=== PATIENT | female | born 2000 | race Caucasian/White ===

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

== ENCOUNTER → 2022-03-29 10:31 | Outpatient (CLI) | payer BC, SELFPAY ==
--- NOTE | 2022-03-29 10:35 | DI.US.S_ITS ---
PROCEDURE: US PELVIC COMPLETE INDICATIONS: PCOS/ovarian cyst TECHNIQUE: Real-time scanning was performed of the pelvic organs, with image documentation. Additional endovaginal scanning was necessary due to incomplete visualization of the adnexal and endometrial structures by transabdominal scanning. COMPARISON: [facility], US, US PELVIC COMPLETE WITH TRANSVAGINAL, 05/29/2019, 8:17. [facility], US, US PELVIC COMPLETE WITH TRANSVAGINAL, 10/09/2019, 9:31. [facility], US, US PELVIC COMPLETE WITH TRANSVAGINAL, 02/21/2020, 0:02. FINDINGS: Uterus: Uterus is anteverted and normal in size at 7.2 x 2.8 x 4.3 cm. The myometrium is homogeneous. The endometrium measures 3 mm combined thickness. Ovaries: The right ovary measures 3.6 x 2.6 x 2.3 cm. The left ovary measures 4.9 x 5 x 5 cm and demonstrates a complex cyst that measures 4.7 x 4.2 x 4.4 cm. More than 12 follicles can be seen involving the right ovary. No adnexal masses are seen. Other: A mild amount of free pelvic fluid is seen, which is considered to be within physiologic limits. IMPRESSION: Complex cyst seen of the left ovary measuring up to 4.7 cm. If it would be clinically appropriate, a followup pelvic ultrasound could be considered in 6 weeks to assure resolution/ improvement. More than 12 follicles can be seen involving the right ovary, which is consistent with the given clinical history of polycystic ovarian syndrome. We strive to produce accurate, complete, and clear reports of imaging services. To assist us in improving patient care, this report was composed using standard report templates and voice recognition software. Therefore, it may contain abnormal punctuation, insertions and/or omissions. Occasional wrong-word or sound-alike substitutions may occur. Though we review the report and make efforts to correct it, we do recommend that the report be read carefully in proper context to recognize any text inaccuracies. Dictated by: Alex Davis M.D. on 03/29/2022 at 11:29 Approved by: Alex Davis M.D. on 03/29/2022 at 11:33
== END ==
PROVIDERS: Referring Provider Obstetrics & Gynecology; Visit Provider Obstetrics & Gynecology
DX: E28.2 Polycystic ovarian syndrome (principal); N83.292 Other ovarian cyst, left side
CPT/HCPCS: 76830; 76856

== ENCOUNTER → 2022-05-10 08:34 | Outpatient (CLI) | payer BC, SELFPAY ==
[2022-05-10 10:01] LABS: Glucose 92 mg/dL (70-100)
== END ==
PROVIDERS: Referring Provider Obstetrics & Gynecology; Visit Provider Obstetrics & Gynecology
DX: E28.2 Polycystic ovarian syndrome (principal)
CPT/HCPCS: 36415; 82947; 83525

== ENCOUNTER → 2022-05-27 07:55 | Outpatient (CLI) | payer BC, SELFPAY ==
[2022-05-27 08:44] LABS: COVID19 -Nasal RAPID Negative (Negative)
== END ==
PROVIDERS: Visit Provider Obstetrics & Gynecology
DX: Z01.812 Encounter for preprocedural laboratory examination (principal); Z20.822 Contact with and (suspected) exposure to COVID-19
CPT/HCPCS: 87635

== ENCOUNTER 2022-05-30 09:34 | Day surgery (SDC) | payer BC, SELFPAY ==
[2022-05-25 14:29] VITALS: BMI 29.5
[2022-05-30] VITALS (10 sets, daily range): BP systolic 99–142; BP diastolic 64–100; PULSE 85–120; RESP 12–25; TEMP 36.1–37.1; O2SAT 10–100; BMI 29.5
[2022-05-30] MEDS: LACTATED RINGERS 1,000 ML 100 ML IV (10:16)
--- NOTE | 2022-05-30 10:22 | PM.HP.1 ---
History of Present Illness History of Present Illness Date Patient Seen: 05/30/22 Time Patient Seen: 10:22 Chief complaint: SDC Narrative: Patient is a 21-year-old 0 who presents for a laparoscopic removal of a complex left ovarian cyst. Patient History Medical History (Updated 05/30/22 @ 09:53 by Indy Stuart RN) Anxiety and depression GI bleeding Headache History of panic attacks Kidney stone Ovarian cyst Syncope and collapse Surgical History (Updated 12/06/18 @ 20:37 by Krista Hardin PA-C) No pertinent past surgical history Family & Social History Social History: household members significant other Tobacco & Substance use: Smoking Status Never smoker alcohol intake current alcohol intake frequency holiday/special occasion Substance Use Type marijuana Meds Home Medications and Allergies Home Medications Medication Instructions Recorded Confirmed Type oxycodone 5 mg tablet 5 mg PO Q6H PRN pain #10 tabs 05/18/22 05/30/22 Rx Allergies Allergy/AdvReac Type Severity Reaction Status Date / Time No Known Drug Allergies Allergy Verified 05/30/22 09:52 Exam Vital Signs (past 8 hours): - 05/30/22 10:02 Temperature 98.8 F Pulse Rate 96 H Respiratory Rate 16 Blood Pressure 139/100 H Pulse Oximetry 98 Oxygen Delivery Method Room Air Oxygen Delivery Method Room Air Narrative Exam Narrative: HEENT: No thyromegaly, no anterior cervical or supraclavicular lymphadenopathy. Lungs:Clear to auscultation bilaterally, no wheezes. Cardiovascular: Regular rate and rhythm, no murmurs, rubs, or gallops. Abdomen: No scars. No hepatosplenomegaly. No masses palpable. External genitalia: Normal Vagina: Normal Cervix: Normal Bimanual exam: 6 Week size anteverted uterus. Mobile. Left adnexal tenderness and fullness Extremities: No edema Assessment & Plan Assessment & Plan narrative: Assessment: 21-year-old 0 with a complex left ovarian cyst Plan: Laparoscopic removal of the left ovarian cyst The risks, benefits, and alternatives to the procedure were explained to the patient. The risks including bleeding, infection, injury to the bowel, bladder, or ureters. She understands these risks and agrees to proceed. A full par Q was held and consent form was signed. COVID-19 COVID-19 status: Negative Time Spent With Patient Time with patient: less than 30 minutes Critical Care time: I spent a total of [] minutes of critical care time on this patient's care today; this time is exclusive of procedural time.
--- NOTE | 2022-05-30 10:24 | PM.PREOP ---
Pre-operative Note COVID-19 COVID-19 status: Negative Result date/Date tested (Pos, Neg/Pending): 05/27/22 Criteria for continued procedure: Non-surgical alternatives not available or appropriate per current SOC Interval Note History & Physical reviewed/Exam performed by Physician: Yes Changes to H&P: No H&P completed within 30 days and has changed as indicated here:: 05/30/22
--- NOTE | 2022-05-30 11:00 | SUR.OPER ---
Lithotomy on padded OR bed, head on pillow, arms tucked bilaterally with toboggans and gel pads. Legs secured in padded yellow fins stirrups.
[2022-05-30] MEDS: BUPIVACAINE 0.5% W/ EPI (PF) 30 ML VIAL INJ (11:06)
[2022-05-30] MEDS: fentaNYL 100 MCG/2 ML INJ IV (11:46)
--- NOTE | 2022-05-30 11:57 | PM.GYNOP.1 ---
Operative Date/Time/Diagnoses Date of procedure: 05/30/22 Time of procedure: 11:57 Pre-op diagnosis: Complex left ovarian cyst Post-op diagnosis: same Procedure & Clinicians Procedure: Procedures Operation Date: 05/30/22 11:45 Actual Procedure Side Surgeon p Diagnostic laparoscopy, bilateral ovarian patricia holes Left Tamela Grover MD Indications: Polycystic ovaries Complex left ovarian cyst Surgeon: Tamela Grover Anesthesia Type: General and Local Operative Notes Findings: 6 wks size anteverted uterus Normal tubes bilaterally Normal liver and gallbladder Normal appendix Enlarged Polycystic ovaries bilaterally Moderate amount of blood in the pelvis 1 cm paratubal cyst on the right tube Closure Type: primary Specimen(s): none Estimated blood loss (mL): 5 Blood products transfused: none Procedure in detail: After informed consent was obtained, the patient was taken to the operating room where she was placed in the dorsal supine position. After adequate general endotracheal anesthesia was achieved, she was placed in the dorsal lithotomy position, and prepped and draped in the usual sterile fashion. A time-out was performed. A bivalve speculum was placed into the vagina and the anterior lip of the cervix was grasped with a single-tooth tenaculum. The cervical os was sequentially dilated until the Zumi uterine manipulator could pass easily into the endometrial cavity. Single-tooth tenaculum was removed from the anterior lip of the cervix. The bivalve speculum was removed from the vagina. Attention was then turned to the abdomen where 6 cc of 0.5% Marcaine with epinephrine were injected in the umbilical fold. A 5 mm incision was made. The Veress needle was placed into the peritoneal cavity, and its placement confirmed by aspiration and drop test. The abdominal cavity was insufflated with 3.8 L of CO2. The Veress needle was removed, and a 5 mm trocar was placed without difficulty. A second incision was made 4 cm to the left of midline at the level of the umbilicus after 6 cc of 0.5% Marcaine with epinephrine were injected. A second 5 mm incision was made. A second 5 mm trocars placed without difficulty under direct visualization. Probe was used to identify both ovaries. In the posterior cul-de-sac there was a moderate amount of blood that was coming from the left ovary. The left ovarian cyst had ruptured. There were polycystic ovaries bilaterally. Normal appendix. Normal liver and gallbladder. A third incision was made to the right of midline at the level of the umbilicus after 6 cc of 0.5% Marcaine with epinephrine were injected. A 5 mm incision was made. A third 5 mm trocar was placed under direct visualization. The probe was used to elevate the uterus out of the pelvis. The anterior posterior cul-de-sacs were inspected. They were normal. Using the J-hook cautery, the paratubal cyst on the right was cauterized and collapsed. Using the J-hook multiple peripheral follicles on both ovaries were cauterized using patricia holes. Hemostasis was achieved. The instruments were removed from the abdomen. The CO2 was allowed to escape. All of the incisions were closed with 4-0 Monocryl in a subcuticular fashion. Steri-Strips and Allevyn dressings were placed. The Zumi uterine manipulator was removed from the uterus. Sponge, lap, and instrument counts were correct x2. The patient tolerated the procedure well, and was taken to PACU in stable condition. Complications: none Post-operative Condition: stable Disposition: PACU Plan for aftercare: Home after recovery
[2022-05-30] MEDS: OXYCODONE IR 5 MG TABLET PO ×2 (12:00→12:42)
[2022-05-30] MEDS: ACETAMINOPHEN 325 MG TABLET PO ×2 (12:22→12:43)
== END 2022-05-30 13:15 | disposition home or self-care (01) ==
PROVIDERS: Referring Provider Obstetrics & Gynecology; Visit Provider Obstetrics & Gynecology
PROC: (CPT 58661; principal; 2022-05-30 11:45)
DX: E28.2 Polycystic ovarian syndrome (principal); K66.1 Hemoperitoneum; N83.8 Other noninflammatory disorders of ovary, fallopian tube and broad ligament
CPT/HCPCS: 58662; 81025; J1100; J1885; J2250; J2405; J2704; J3010

== ENCOUNTER 2022-06-13 23:47 | Emergency (ER) | payer BC, SELFPAY ==
[2022-06-14 00:37] VITALS: BP 138/81; PULSE 93; RESP 14; TEMP 36.7; O2SAT 100; BMI 27.4
--- NOTE | 2022-06-14 03:00 | PC.NURSE ---
Ambulatory to bathroom with steady gait
--- NOTE | 2022-06-14 03:30 | PC.NURSE ---
Awaiting MD evaluation - no needs voiced at this time - NAD
--- NOTE | 2022-06-14 03:31 | ED.SKABFB ---
HPI - Skin/Abscess/Foreign Bdy General Chief complaint: Skin/Abscess/Foreign Body Stated complaint: GET INCISION CHECKED OUT POSSIBLE INFECTION Time Seen by Provider: 06/14/22 03:02 Source: patient Mode of arrival: Ambulatory Limitations: no limitations History of Present Illness HPI narrative: Patient is a 21-year-old female status post laparoscopic left ovarian cyst removal from 05/30/2022 presenting today with incisional site pain. She states that she took 2 weeks off before she went back to work. 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 She says she pushes 100 lb carts around his. [place] was her 1st night back she has only been at work for a few hours when she started having worsening pain. She actually says that her incisional site pain started about 3 days ago. She says that she was doing well however this skin is over her incisions started hurting. She has not had any fever chills there is no nausea or vomiting. Normal bowel movements. The skin is very sensitive overall 3 incisional sites. Today she went back to work and the pain got worse. She has been taking Tylenol ibuprofen. It has been helping. Related Data Previous Rx's Medication Instructions Recorded oxycodone 5 mg tablet 5 mg PO Q4H PRN pain #14 tabs 05/30/22 Allergies Allergy/AdvReac Type Severity Reaction Status Date / Time No Known Drug Allergies Allergy Verified 05/30/22 09:52 Review of Systems Review of Systems Narrative: GENERAL: Denies chills,fever HEENT: Denies throat pain RESPIRATORY: Denies dyspnea, cough, wheezing CARDIOVASCULAR: Denies chest pain, palpitations GASTROINTESTINAL: Denies nausea, vomiting MUSCULOSKELETAL: Denies extremity pain, injury SKIN: See HPI NEUROLOGIC: Denies weakness, dizziness, headache, numbness 8 point review of systems is negative except for those stated above and HPI Patient History Medical History (Updated 06/14/22 @ 03:53 by Shannon Teague DO) Anxiety and depression GI bleeding Headache History of panic attacks Kidney stone Ovarian cyst Syncope and collapse Surgical History (Updated 12/06/18 @ 20:37 by Krista Hardin PA-C) No pertinent past surgical history Social History household members: significant other Smoking Status: Never smoker alcohol intake: current Smoking Status: Never smoker tobacco type: vaping alcohol intake frequency: holidays/special occasions only Substance Use Type: marijuana Exam Initial Vital Signs Initial Vital Signs: Vital Signs Temperature 98.0 F 06/14/22 00:37 Pulse Rate 93 H 06/14/22 00:37 Respiratory Rate 14 06/14/22 00:37 Blood Pressure 138/81 06/14/22 00:37 Pulse Oximetry 100 06/14/22 00:37 Oxygen Delivery Method 06/14/22 00:37 GENERAL: Alert well-appearing 21-year-old female HEENT: Head atraumatic,EOMI, pupils reactive, face symmetric, moist mucous membranes CARDIOVASCULAR: Regular rate and rhythm without murmurs, rubs or gallops. RESPIRATORY: Breath sounds equal bilaterally, no wheezes rales or rhonchi. ABDOMEN: Soft, mildly tender more tender over the incisional sites hernias are present no seroma was skin has healed. More tender on left than right EXTREMITIES: Normal range of motion, no clubbing or edema. Neurovascularly intact NEUROLOGICAL: Alert and oriented x4. SKIN: Incisional sites are clean dry healed no erythema is no drainage no sign of infection Course Vital Signs Vital signs: Vital Signs - 8 hr 06/14/22 00:37 Temperature 98.0 F Pulse Rate 93 H Respiratory Rate 14 Blood Pressure 138/81 Pulse Oximetry 100 Oxygen Delivery Method Room Air MDM - Skin/Abscess/Foreign Bdy MDM Narrative Medical decision making narrative: The patient overall appears well. She has pain on the skin at her incision sites on all 3. It is more on the left than the others but present everywhere. His she started going back to work which is quite a lot of manual labor and heavy lifting. I think she has overdone it causing worsening pain. At this time no concerning signs or symptoms no need for further workup. There is certainly no sign of infection. Unlikely to be hernia abscess or other. She does need work note for any further time Discharge Plan Departure Patient Disposition: Home Clinical Impression: Post-operative pain Instructions: DI for Postoperative Pain Activity Restrictions/Additional Instructions: *You have been diagnosed with postoperative pain *What to do: Please limit you activity and lifting. His please follow-up with OBGYN. Sometimes it takes 6-8 weeks for a full is healing you will need another work note from OBGYN if you should need more time off *Continue to take medications as directed *Follow up with your primary care provider in 2-3 days or call [phone] *Return to ER if you should have increasing pain redness swelling persistent vomiting fever or any new, worsening or concerning symptoms Prescriptions: No Action oxycodone 5 mg tablet 5 mg PO Q4H PRN (Reason: pain) Qty: 14 0RF Referrals: Tamela Grover MD [Physician] - Stand Alone Forms: Work Release Note Visit Report Forms: Patient Portal/API
--- NOTE | 2022-06-14 04:06 | PC.NURSE ---
Had ovarian cyst surgery the end of May - states that the incision sites are still painful rating them a 5/10 - states that one of the incisons is more painful and is a 6/10 - no s/sx of infection - no drainage or redness or swelling - no new injury - edges approximated
== END 2022-06-14 04:09 | disposition home or self-care (01) ==
PROVIDERS: Emergency Provider Emergency Medicine
DX: G89.18 Other acute postprocedural pain (principal)
CPT/HCPCS: 99281

== ENCOUNTER → 2022-09-15 08:46 | Outpatient (CLI) | payer BC, SELFPAY ==
--- NOTE | 2022-09-15 08:46 | DI.US.S_ITS ---
PROCEDURE: US PELVIC COMPLETE INDICATIONS: left sided pain TECHNIQUE: Real-time scanning was performed of the pelvic organs, with image documentation. Additional endovaginal scanning was necessary due to incomplete visualization of the adnexal and endometrial structures by transabdominal scanning. COMPARISON: [facility], US, US PELVIC COMPLETE, 05/10/2022, 8:18. FINDINGS: Uterus: Uterus is anteverted and normal in size at 6.2 x 4.5 x 2.9 cm. The myometrium is homogeneous. The endometrium measures 2 mm combined thickness. Minuscule fluid in the endometrium. No fibroids seen. Prominent pelvic veins. Ovaries: The right ovary measures 4.5 x 2.9 x 2.6 cm, with a calculated ovarian volume of 18 cc. The left ovary measures 4.1 x 2.8 x 2.4 cm, with a calculated ovarian volume of 14 cc. The ovaries have a normal sonographic appearance. Less than 12 follicles can be seen in each ovary. Right ovarian cyst measuring 2.5 x 1.8 x 1.7 cm. There is a lacy appearance and the wall appears crenulated. Other: No pathologic free abdominal or pelvic fluid. IMPRESSION: 1. Right ovarian cyst measuring 2.5 cm with a crenulated and internal lacy appearance. Suspect hemorrhagic cyst. Follow-up pelvic ultrasound in 6-12 weeks could be considered for further evaluation. 2. Endometrium measures 2 mm. We strive to produce accurate, complete, and clear reports of imaging services. To assist us in improving patient care, this report was composed using standard report templates and voice recognition software. Therefore, it may contain abnormal punctuation, insertions and/or omissions. Occasional wrong-word or sound-alike substitutions may occur. Though we review the report and make efforts to correct it, we do recommend that the report be read carefully in proper context to recognize any text inaccuracies. Dictated by: Christiano Camp M.D. on 09/15/2022 at 13:05 Approved by: Christiano Camp M.D. on 09/15/2022 at 13:10
== END ==
PROVIDERS: Referring Provider Obstetrics & Gynecology; Visit Provider Obstetrics & Gynecology
DX: N83.291 Other ovarian cyst, right side (principal); R10.2 Pelvic and perineal pain; R10.9 Unspecified abdominal pain
CPT/HCPCS: 76830; 76856

== ENCOUNTER 2022-11-30 10:30 | Outpatient (RCR) | payer BC, SELFPAY ==
--- NOTE | 2022-11-09 14:48 | PT.OIE ---
Current Diagnoses Disorder of muscle, unspecified (11/09/22) Segmental and somatic dysfunction of pelvic region (11/09/22) Unspecified dyspareunia (11/09/22) Other specified conditions associated with female genital organs and menstrual cycle (11/09/22) Past Medical History (Last Updated 05/30/22 @ 09:53 by Indy Stuart RN) Anxiety and depression GI bleeding Headache History of panic attacks Kidney stone Ovarian cyst Syncope and collapse Past Surgical History (Last Updated 12/06/18 @ 20:37 by Krista Hardin PA-C) No pertinent past surgical history Visit Care Team Role Provider Type Tamela Grover MD Attending Provider Physician Family Provider Primary Care Provider Referring Provider Specialty: Gynecology INVESTMENT REPRESENTATIVE Obstetrics Address: [address] [place] [address], [facility] Email: [email or web address] Physical Therapy Initial Evaluation PT-OP-A Visit Information Start: 11/09/22 09:36 Freq: Status: Active Protocol: Document 11/09/22 11:25 [facility] (Rec: 11/09/22 11:29 [facility] [id number]) Out-Patient Physical Therapy Visit Information Visit Information Visit Type Initial Evaluation Visit Start Time 11:25 Visit Stop Time 12:05 Total Visit Minutes 40 Visit Number 1 Evaluation Information Evaluation Date 11/09/22 PT-OP-B Current Condition Start: 11/09/22 11:29 Freq: Status: Active Protocol: Document 11/09/22 11:25 [facility] (Rec: 11/09/22 11:41 [facility] [id number]) Current Condition History of Current Condition Onset Date chronic Current Complaints pelvic pain and pelvic congestion syndrome History of Current Condition pt was diagnosed with pelvic congestions syndrome, she has constant pain across her pelvis x 5 years, pain with intercourse in the last two months, Polysystic ovary syndrome no endo seen when she had her cyst surgery She has always had really bad periods at 16 she started to have intercourse and been with one partner and now it is just constant . Things have gotten much worse in the last 2 months. No control. She describes pressure in the top of her pelvis when she is emptyng her bladder, pressure wakes her up to void. She drinks 32 oz 4 times per day. Regular bowel movements. She hasn't been able to do a lot of house work as standing is uncomfortable, she hasn't been able to work due to heavy lifting as this causes pain. Treatment Goals Patient/Caregiver Goals pt would like to be able to have intercourse with her partner as she would like to have a baby Current Functional Impairments (Reported) Functional Limitations- ADL's pt is limited with ADL's that require lifting and standing increases her pain as well so any ADL's that require standing are difficult for her . Functional Limitations- Work/School pt has been unable to work as her work had included heavy lifting PT-OP-C Subjective Start: 11/09/22 09:36 Freq: Status: Active Protocol: Document 11/09/22 11:25 [facility] (Rec: 11/15/22 14:31 [facility] [id number]) Patient Questionnaires Pelvic Pain and Urgency/Frequency Patient Symptom Scale Pelvic Pain Score 24 OP-PT Pain Assessment Location pelvic pain across the lower abdominal wall Intensity 9 Scale Used Numeric (0 - 10) Frequency Constant PT-OP-F Manual Assessment Start: 11/09/22 09:36 Freq: Status: Active Protocol: Document 11/09/22 11:25 [facility] (Rec: 11/10/22 17:23 [facility] [id number]) Manual Assessments Soft Tissue Assessment Soft Tissue Mobility Assessment myofascial tightess in the suprapubic fascia and left adductor attachments to the pubic bone, tightness left obturator internus PT-OP-I Pelvic Floor Start: 11/09/22 09:36 Freq: Status: Active Protocol: Document 11/09/22 11:25 [facility] (Rec: 11/10/22 17:23 [facility] [id number]) Pelvic Floor Assessment Urine Pelvic Floor Surgery No: left ovarian cyst surgery Urinary Symptoms Urge Sensation,Pain Other Urinary Symptoms pt describes dysparunia that has been worsening especially the past 2 months, she also describes frequent urgency Leakage Size Medium Leakage Cause Urge Pelvic Clock Pelvic Clock 12-3 Guarding Pelvic Clock 3-6 Hypertonic Pelvic Clock 6-9 Hypertonic Pelvic Clock Other lateral franklin of the levator ani hyper tonic L>R, Maribell was able to tolerate palpation on the right side where as on the left side she was not able to tolerate any palpation . Maribell was able to relax a bit with manual therapy techniques on the right side and was then better able to relax her pelvic floor following a contraction Contraction Ability Manual Muscle Testing Left 4 Manual Muscle Testing Right 4 Manual Muscle Testing Anterior 1 Manual Muscle Testing Posterior 4 PT-OP-J Posture/Palpation/Skin Start: 11/09/22 09:36 Freq: Status: Active Protocol: Document 11/09/22 11:25 [facility] (Rec: 11/15/22 14:45 [facility] [id number]) Palpation Assessment Location levator ani Palpation Findings Soft Tissue Tightness,Spasm, Muscle Guarding,Tenderness Palpation Details left greater than right sided hyponic muscle tissue in the levator ani lateral franklin suprapubic fascia Palpation Findings Soft Tissue Tightness,Spasm, Muscle Guarding,Tenderness PT-OP-Q Treatments Start: 11/09/22 09:36 Freq: Status: Active Protocol: Document 11/09/22 11:25 [facility] (Rec: 11/09/22 14:05 [facility] [id number]) Therapeutic Exercises Other Exercises bree pose Reps/Minutes hold 1-2 minutes seated adductor V stretch Reps/Minutes hold 1-2 min Self-Care/Home Management Treatment Activities Self-Care/Home Management Activities Maribell was educated on use of a size XS dilator for home use for the right side of her pelvic floor only from 6-9 on the pelvic clock PT-OP-T Assessment and Plan Start: 11/09/22 09:36 Freq: Status: Active Protocol: Document 11/09/22 11:25 [facility] (Rec: 11/10/22 17:23 [facility] [id number]) Physical Therapy Assessment Rehab Potential Rehabilitation Potential Excellent Evaluation Complexity Number of Personal Factors/Comorbidities 0 Number of Body Systems Impaired 1-2 Clinical Presentation at Evaluation Stable Impairments Impairments Activity Tolerance,Functional Activities,Pain,Soft Tissue Mobility,Tone Other Impairments urinary urgency and frequency, dyspareunia, pelvic floor muscle spasm/hypertonicity, and pain that limit ADL's and work related activity Goals 3 Impairment urgency and frequency with c/o pressure over the bladder waking 2 times at night to void Short Term Goal (STG) Pt is educated on urge deference technique and bladder retraining STG Duration 4 weeks Regulatory Manager Goal (LTG) Maribell reports a overall reduction in urinary urgency and frequency and is able to lower her pelvic pain urgency/ frequency patient symptoms scale from 24 to 18 or less LTG Duration 12 weeks 2 Impairment pelvic floor hypertonicity R>L lateral franklin of the levator ani with decreased ability to relax the pelvic floor as well as c/o dysparunia Short Term Goal (STG) Maribell is educated in use of progressive dilators to help with relaxation of the pelvic floor and she is educated in stretches to help relax the pelvic floor muscles STG Duration 4 weeks Regulatory Manager Goal (LTG) With home dilator use, stretches, and manual therapy techniques Maribell is able to improve pelvic floor relaxation and decrease muscle spasm and reports decreased pain with intercourse LTG Duration 12 weeks 1 Impairment constant pain across the front of the pelvis rated 8-9/10 Regulatory Manager Goal (LTG) Maribell reports a overall reduction in anterior pelvic pain from 8-9/10 to 2-4/10 LTG Duration 12 weeks Assessment Summary Assessment Maribell is a 22 year old female referred to PT for pelvic pain symptoms. Maribell has a history of pelvic congestion syndrome, PCOS with a surgery for a left ovarian cyst 05/26, and pelvic pain. She describes a constant pain across the front of her pelvis that has been with her approximately 5 years. She reports always experiencing painful periods. She has been intimate with the same partner since she was 16. At a young age she describes dysparunia however in the past 2 months it has gotten much more painful to the point that she is unable to engage in intercourse. Maribell reports frequent urgency and notes she most always feels pressure over her bladder. With pelvic floor examination today the the left lateral wall of the levator ani is hypertonic and I am unable to give any stretch manually to this region. The right lateral wall is also hypertonic however Maribell is able to tolerate gentle pressure laterally. I worked on educating her on contract relax of her pelvic floor working on relaxing and letting go of the muscle. She was given a size xs dilator to use for gentle stretching on the right side of the pelvic clock only. She was able to use the dilator in the clinic today with good success. Her anterior wall of the levator ani is very weak with 1/5 MMT and she is much more tender on the left. The left adductor is also guarded at the pubic attachment as well as her left obturator internus. Treatment will focus on the right side to start and then progress to the left. She has restrictions in the abdominal fascia as well and treatment will also focus here. Maribell is a good candidate for Pelvic PT Physical Therapy Plan Frequency and Duration Frequency of Treatment 1x/Week Duration of treatment (weeks) 12 Plan of Care Start Date 11/10/22 Plan of Care End Date 02/02/23 Therapeutic Interventions Therapeutic Interventions Home Exercise Program,Manual Therapy,Patient/Caregiver Education,Self-Care/Home Management,Soft Tissue Mobilization,Therapeutic Exercises Modalities Biofeedback Next Visit Focus/Plan Next Note Type Treatment Note Next Visit Plan Manual therapy techniques for fascial release in the pelvic floor as well as the abdominal wall, work on pelvic decompression and stretches for the pelvic floor
--- NOTE | 2022-11-24 13:45 | PT.OTN ---
Current Diagnoses Disorder of muscle, unspecified (11/24/22) Segmental and somatic dysfunction of pelvic region (11/24/22) Unspecified dyspareunia (11/24/22) Other specified conditions associated with female genital organs and menstrual cycle (11/24/22) Physical Therapy Treatment Note PT-OP-A Visit Information Start: 11/09/22 09:36 Freq: Status: Active Protocol: Document 11/24/22 13:00 [facility] (Rec: 11/30/22 09:29 [facility] [id number]) Out-Patient Physical Therapy Visit Information Visit Information Visit Type Treatment Note Visit Start Time 13:00 Visit Stop Time 13:45 Total Visit Minutes 45 Visit Number 2 PT-OP-B Current Condition Start: 11/09/22 11:29 Freq: Status: Active Protocol: Document 11/09/22 11:25 [facility] (Rec: 11/09/22 11:41 [facility] [id number]) Current Condition History of Current Condition Onset Date chronic Current Complaints pelvic pain and pelvic congestion syndrome History of Current Condition pt was diagnosed with pelvic congestions syndrome, she has constant pain across her pelvis x 5 years, pain with intercourse in the last two months, Polysystic ovary syndrome no endo seen when she had her cyst surgery She has always had really bad periods at 16 she started to have intercourse and been with one partner and now it is just constant . Things have gotten much worse in the last 2 months. No control. She describes pressure in the top of her pelvis when she is emptyng her bladder, pressure wakes her up to void. She drinks 32 oz 4 times per day. Regular bowel movements. She hasn't been able to do a lot of house work as standing is uncomfortable, she hasn't been able to work due to heavy lifting as this causes pain. Treatment Goals Patient/Caregiver Goals pt would like to be able to have intercourse with her partner as she would like to have a baby Current Functional Impairments (Reported) Functional Limitations- ADL's pt is limited with ADL's that require lifting and standing increases her pain as well so any ADL's that require standing are difficult for her . Functional Limitations- Work/School pt has been unable to work as her work had included heavy lifting PT-OP-C Subjective Start: 11/09/22 09:36 Freq: Status: Active Protocol: Document 11/24/22 13:04 [facility] (Rec: 11/24/22 13:55 [facility] [id number]) OP-PT Subjective Patient Comments Patient Comments pt notes she has tried the dilator on the right side and does it as long as she can. She feels the pain across her pelvis andis a 8/10 PT-OP-F Manual Assessment Start: 11/09/22 09:36 Freq: Status: Active Protocol: Document 11/09/22 11:25 [facility] (Rec: 11/10/22 17:23 [facility] [id number]) Manual Assessments Soft Tissue Assessment Soft Tissue Mobility Assessment myofascial tightess in the suprapubic fascia and left adductor attachments to the pubic bone, tightness left obturator internus PT-OP-I Pelvic Floor Start: 11/09/22 09:36 Freq: Status: Active Protocol: Document 11/09/22 11:25 [facility] (Rec: 11/10/22 17:23 [facility] [id number]) Pelvic Floor Assessment Urine Pelvic Floor Surgery No: left ovarian cyst surgery Urinary Symptoms Urge Sensation,Pain Other Urinary Symptoms pt describes dysparunia that has been worsening especially the past 2 months, she also describes frequent urgency Leakage Size Medium Leakage Cause Urge Pelvic Clock Pelvic Clock 12-3 Guarding Pelvic Clock 3-6 Hypertonic Pelvic Clock 6-9 Hypertonic Pelvic Clock Other lateral franklin of the levator ani hyper tonic L>R, Maribell was able to tolerate palpation on the right side where as on the left side she was not able to tolerate any palpation . Maribell was able to relax a bit with manual therapy techniques on the right side and was then better able to relax her pelvic floor following a contraction Contraction Ability Manual Muscle Testing Left 4 Manual Muscle Testing Right 4 Manual Muscle Testing Anterior 1 Manual Muscle Testing Posterior 4 PT-OP-J Posture/Palpation/Skin Start: 11/09/22 09:36 Freq: Status: Active Protocol: Document 11/09/22 11:25 [facility] (Rec: 11/15/22 14:45 [facility] [id number]) Palpation Assessment Location levator ani Palpation Findings Soft Tissue Tightness,Spasm, Muscle Guarding,Tenderness Palpation Details left greater than right sided hyponic muscle tissue in the levator ani lateral franklin suprapubic fascia Palpation Findings Soft Tissue Tightness,Spasm, Muscle Guarding,Tenderness PT-OP-Q Treatments Start: 11/09/22 09:36 Freq: Status: Active Protocol: Document 11/24/22 17:29 [facility] (Rec: 11/24/22 17:30 [facility] [id number]) Therapeutic Exercises Supine Exercises iliopsoas stretch in jeferson test position Reps/Minutes hold 1-2 min Manual Therapy Treatment Soft Tissue Mobilization adductor release on the left Body Position Hooklying Comments left sided guarding at proximal attachments right lateral wall of the pelvic floor release Mobilization Type Myofascial Release Comments right lateral wall is much less guarded today as compared to first visit iliopsoas release B Comments left greater than right sided guarding of the iliopsoas abdominal fascia MFR Intensity/Depth Moderate Body Position Supine Self-Care/Home Management Treatment Education Patient Education Home Exercise Program,Pain Management Other Education pt educated with alexator on self release of the leavator ani PT-OP-T Assessment and Plan Start: 11/09/22 09:36 Freq: Status: Active Protocol: Document 11/24/22 13:00 [facility] (Rec: 11/30/22 09:29 [facility] [id number]) Physical Therapy Assessment Assessment Summary Assessment I was able to work on the right side of the levator ani today and the guarding was much decreased. Left side is still guarded and in spasm. I did work on the sided adductors and we added in iliopsoas stretch for the left . Physical Therapy Plan Frequency and Duration Frequency of Treatment 1x/Week Duration of treatment (weeks) 12 Plan of Care Start Date 11/10/22 Plan of Care End Date 02/02/23 Therapeutic Interventions Therapeutic Interventions Home Exercise Program,Manual Therapy,Patient/Caregiver Education,Self-Care/Home Management,Soft Tissue Mobilization,Therapeutic Exercises Modalities Biofeedback Next Visit Focus/Plan Next Note Type Treatment Note Next Visit Plan revisit pelvic floor tone, continue working on left sided iliopsoas release and begin working on the right side of the levator ani if pt is able to tolerate
--- NOTE | 2022-11-30 14:05 | PT.OTN ---
Current Diagnoses Disorder of muscle, unspecified (11/30/22) Segmental and somatic dysfunction of pelvic region (11/30/22) Unspecified dyspareunia (11/30/22) Other specified conditions associated with female genital organs and menstrual cycle (11/30/22) Physical Therapy Treatment Note PT-OP-A Visit Information Start: 11/09/22 09:36 Freq: Status: Active Protocol: Document 11/30/22 10:29 [facility] (Rec: 11/30/22 11:20 [facility] [id number]) Out-Patient Physical Therapy Visit Information Visit Information Visit Type Treatment Note Visit Start Time 10:30 Visit Stop Time 11:15 Total Visit Minutes 45 Visit Number 3 PT-OP-B Current Condition Start: 11/09/22 11:29 Freq: Status: Active Protocol: Document 11/09/22 11:25 [facility] (Rec: 11/09/22 11:41 [facility] [id number]) Current Condition History of Current Condition Onset Date chronic Current Complaints pelvic pain and pelvic congestion syndrome History of Current Condition pt was diagnosed with pelvic congestions syndrome, she has constant pain across her pelvis x 5 years, pain with intercourse in the last two months, Polysystic ovary syndrome no endo seen when she had her cyst surgery She has always had really bad periods at 16 she started to have intercourse and been with one partner and now it is just constant . Things have gotten much worse in the last 2 months. No control. She describes pressure in the top of her pelvis when she is emptyng her bladder, pressure wakes her up to void. She drinks 32 oz 4 times per day. Regular bowel movements. She hasn't been able to do a lot of house work as standing is uncomfortable, she hasn't been able to work due to heavy lifting as this causes pain. Treatment Goals Patient/Caregiver Goals pt would like to be able to have intercourse with her partner as she would like to have a baby Current Functional Impairments (Reported) Functional Limitations- ADL's pt is limited with ADL's that require lifting and standing increases her pain as well so any ADL's that require standing are difficult for her . Functional Limitations- Work/School pt has been unable to work as her work had included heavy lifting PT-OP-C Subjective Start: 11/09/22 09:36 Freq: Status: Active Protocol: Document 11/30/22 10:29 [facility] (Rec: 11/30/22 11:20 [facility] [id number]) OP-PT Subjective Patient Comments Patient Comments pt notes she was really sore the next day after last visit but then she was able to start doing the stretches. Her hip is starting to feel a little better. She is also feeling a little better on the right side of her pelvic floor. She still hasn't tried working on the right side yet as it feels so tight Patient Reported Progress Improving PT-OP-F Manual Assessment Start: 11/09/22 09:36 Freq: Status: Active Protocol: Document 11/09/22 11:25 [facility] (Rec: 11/10/22 17:23 [facility] [id number]) Manual Assessments Soft Tissue Assessment Soft Tissue Mobility Assessment myofascial tightess in the suprapubic fascia and left adductor attachments to the pubic bone, tightness left obturator internus PT-OP-I Pelvic Floor Start: 11/09/22 09:36 Freq: Status: Active Protocol: Document 11/09/22 11:25 [facility] (Rec: 11/10/22 17:23 [facility] [id number]) Pelvic Floor Assessment Urine Pelvic Floor Surgery No: left ovarian cyst surgery Urinary Symptoms Urge Sensation,Pain Other Urinary Symptoms pt describes dysparunia that has been worsening especially the past 2 months, she also describes frequent urgency Leakage Size Medium Leakage Cause Urge Pelvic Clock Pelvic Clock 12-3 Guarding Pelvic Clock 3-6 Hypertonic Pelvic Clock 6-9 Hypertonic Pelvic Clock Other lateral franklin of the levator ani hyper tonic L>R, Maribell was able to tolerate palpation on the right side where as on the left side she was not able to tolerate any palpation . Maribell was able to relax a bit with manual therapy techniques on the right side and was then better able to relax her pelvic floor following a contraction Contraction Ability Manual Muscle Testing Left 4 Manual Muscle Testing Right 4 Manual Muscle Testing Anterior 1 Manual Muscle Testing Posterior 4 PT-OP-J Posture/Palpation/Skin Start: 11/09/22 09:36 Freq: Status: Active Protocol: Document 11/09/22 11:25 [facility] (Rec: 11/15/22 14:45 [facility] [id number]) Palpation Assessment Location levator ani Palpation Findings Soft Tissue Tightness,Spasm, Muscle Guarding,Tenderness Palpation Details left greater than right sided hyponic muscle tissue in the levator ani lateral franklin suprapubic fascia Palpation Findings Soft Tissue Tightness,Spasm, Muscle Guarding,Tenderness PT-OP-Q Treatments Start: 11/09/22 09:36 Freq: Status: Active Protocol: Document 11/30/22 10:30 [facility] (Rec: 11/30/22 14:05 [facility] [id number]) Manual Therapy Treatment Soft Tissue Mobilization left bulbocavernosus Mobilization Type Myofascial Release Intensity/Depth Superficial Body Position Hooklying transverse perineum Mobilization Type Myofascial Release Intensity/Depth Moderate Body Position Hooklying Comments left sided MFR, pt tolerated well adductor release on the left Body Position Hooklying Comments left sided guarding at proximal attachments but some improvements today as compared to last visit iliopsoas release B Body Location left side only Body Position Supine abdominal fascia MFR Intensity/Depth Moderate Body Position Supine PT-OP-T Assessment and Plan Start: 11/09/22 09:36 Freq: Status: Active Protocol: Document 11/30/22 10:30 [facility] (Rec: 11/30/22 14:05 [facility] [id number]) Physical Therapy Assessment Assessment Summary Assessment pt doing better today with left side adductors and did well with external pelvic floor release. Iliopsoas stretch is much more tolerated today and not as tight. Pt to start working on her left side with wand if she is able to and next visit the plan is to start MFR on the left again if pt can tolerate. Physical Therapy Plan Frequency and Duration Frequency of Treatment 1x/Week Duration of treatment (weeks) 12 Plan of Care Start Date 11/10/22 Plan of Care End Date 02/02/23 Next Visit Focus/Plan Next Note Type Treatment Note Next Visit Plan start MFR techniques on the left side of the levator ani if pt is able to tolerate
--- NOTE | 2023-06-13 11:02 | PT.OPDS ---
Current Diagnoses Disorder of muscle, unspecified (11/30/22) Segmental and somatic dysfunction of pelvic region (11/30/22) Unspecified dyspareunia (11/30/22) Other specified conditions associated with female genital organs and menstrual cycle (11/30/22) Visit Care Team Role Provider Type Tamela Grover MD Attending Provider Physician Family Provider Primary Care Provider Referring Provider Specialty: Gynecology EXHIBITION SPECIALIST Obstetrics Address: [address] [place] [address], [facility] Email: [email or web address] Visit Number Visit Number 3 Discharge Summary PT-OP-B Current Condition Start: 11/09/22 11:29 Freq: Status: Active Protocol: Document 11/09/22 11:25 [facility] (Rec: 11/09/22 11:41 [facility] [id number]) Current Condition History of Current Condition Onset Date chronic Current Complaints pelvic pain and pelvic congestion syndrome History of Current Condition pt was diagnosed with pelvic congestions syndrome, she has constant pain across her pelvis x 5 years, pain with intercourse in the last two months, Polysystic ovary syndrome no endo seen when she had her cyst surgery She has always had really bad periods at 16 she started to have intercourse and been with one partner and now it is just constant . Things have gotten much worse in the last 2 months. No control. She describes pressure in the top of her pelvis when she is emptyng her bladder, pressure wakes her up to void. She drinks 32 oz 4 times per day. Regular bowel movements. She hasn't been able to do a lot of house work as standing is uncomfortable, she hasn't been able to work due to heavy lifting as this causes pain. Treatment Goals Patient/Caregiver Goals pt would like to be able to have intercourse with her partner as she would like to have a baby Current Functional Impairments (Reported) Functional Limitations- ADL's pt is limited with ADL's that require lifting and standing increases her pain as well so any ADL's that require standing are difficult for her . Functional Limitations- Work/School pt has been unable to work as her work had included heavy lifting PT-OP-C Subjective Start: 11/09/22 09:36 Freq: Status: Active Protocol: Document 11/30/22 10:29 [facility] (Rec: 11/30/22 11:20 [facility] [id number]) OP-PT Subjective Patient Comments Patient Comments pt notes she was really sore the next day after last visit but then she was able to start doing the stretches. Her hip is starting to feel a little better. She is also feeling a little better on the right side of her pelvic floor. She still hasn't tried working on the right side yet as it feels so tight Patient Reported Progress Improving PT-OP-F Manual Assessment Start: 11/09/22 09:36 Freq: Status: Active Protocol: Document 11/09/22 11:25 [facility] (Rec: 11/10/22 17:23 [facility] [id number]) Manual Assessments Soft Tissue Assessment Soft Tissue Mobility Assessment myofascial tightess in the suprapubic fascia and left adductor attachments to the pubic bone, tightness left obturator internus PT-OP-I Pelvic Floor Start: 11/09/22 09:36 Freq: Status: Active Protocol: Document 11/09/22 11:25 [facility] (Rec: 11/10/22 17:23 [facility] [id number]) Pelvic Floor Assessment Urine Pelvic Floor Surgery No: left ovarian cyst surgery Urinary Symptoms Urge Sensation,Pain Other Urinary Symptoms pt describes dysparunia that has been worsening especially the past 2 months, she also describes frequent urgency Leakage Size Medium Leakage Cause Urge Pelvic Clock Pelvic Clock 12-3 Guarding Pelvic Clock 3-6 Hypertonic Pelvic Clock 6-9 Hypertonic Pelvic Clock Other lateral franklin of the levator ani hyper tonic L>R, Maribell was able to tolerate palpation on the right side where as on the left side she was not able to tolerate any palpation . Maribell was able to relax a bit with manual therapy techniques on the right side and was then better able to relax her pelvic floor following a contraction Contraction Ability Manual Muscle Testing Left 4 Manual Muscle Testing Right 4 Manual Muscle Testing Anterior 1 Manual Muscle Testing Posterior 4 PT-OP-J Posture/Palpation/Skin Start: 11/09/22 09:36 Freq: Status: Active Protocol: Document 11/09/22 11:25 [facility] (Rec: 11/15/22 14:45 [facility] [id number]) Palpation Assessment Location levator ani Palpation Findings Soft Tissue Tightness,Spasm, Muscle Guarding,Tenderness Palpation Details left greater than right sided hyponic muscle tissue in the levator ani lateral franklin suprapubic fascia Palpation Findings Soft Tissue Tightness,Spasm, Muscle Guarding,Tenderness PT-OP-T Assessment and Plan Start: 11/09/22 09:36 Freq: Status: Active Protocol: Document 06/13/23 11:01 [facility] (Rec: 06/13/23 11:02 [facility] [id number]) Physical Therapy Assessment Assessment Summary Assessment As of her last visit Maribell was tolerating treatment well in PT. Unfortinately she has cx her remaining PT visits. I would be happy to continue in the future for her should she need any further care Physical Therapy Plan Discharge Physical Therapy Discharge Reasons No Longer Attending PT
== END 2023-06-19 12:12 | disposition home or self-care (01) ==
LOC: PHYS 10:30
PROVIDERS: Family Provider Obstetrics & Gynecology; PCP Obstetrics & Gynecology; Referring Provider Obstetrics & Gynecology; Visit Provider Obstetrics & Gynecology
DX: M62.9 Disorder of muscle, unspecified (principal); N94.89 Other specified conditions associated with female genital organs and menstrual cycle; M99.05 Segmental and somatic dysfunction of pelvic region; N94.10 Unspecified dyspareunia
CPT/HCPCS: 97140; 97161; 97535

== ENCOUNTER 2023-03-26 13:24 | Emergency (ER) | payer BC, SELFPAY ==
[2023-03-26] VITALS (15 sets, daily range): BP systolic 73–151; BP diastolic 39–79; PULSE 71–94; RESP 16–18; TEMP 36.3; O2SAT 95–100; BMI 28.3
[2023-03-26 14:13] LABS: Basophils Absolute Auto 0 /uL (0-100); Basophils Percent Auto 0.4 % (0-2); Eosinophils Absolute Auto 100 /uL (0-450); Hematocrit 39.6 % (36-46); Hemoglobin 13.9 g/dL (12.0-16.0); Lymphocytes Absolute Auto 1600 /uL (1100-4500); Lymphocytes Percent Auto 17.1 % (25-40); Mean Corpuscular HGB Conc 35.1 % (30-36); Mean Corpuscular Volume 82.6 fL (80-100); Monocytes Absolute Auto 700 /uL (0-900); Monocytes Percent Auto 7.8 % (3-14); Neutrophils Absolute Auto 7000 /uL (1500-7000); Neutrophils Percent Auto 73.7 % (50-75); Platelet Count 187 X10^3/uL (150-400); Red Blood Cell Count 4.79 X10^6/uL (4.0-5.2); White Blood Cell Count 9.5 X10^3/uL (4.5-11.0)
--- NOTE | 2023-03-26 14:16 | PC.NURSE ---
While getting IV access pt had a syncopal event whiel sitting in an arm chair. Pt was responsive to verbal stimuli and placed back in the chair with ice pack applied to neck. Initial BP was 73/39 (50) with a BP of 107/65 (77) three minutes later. US brought over to attempt IV access .Blood had been previously obtained and sent to lab.
[2023-03-26] MEDS: ONDANSETRON 4 MG/2 ML INJ IV ×2 (14:29→17:05)
[2023-03-26] MEDS: SODIUM CHLORIDE 0.9% 1,000 ML 1000 ML IV (14:32)
[2023-03-26 14:35] LABS: Add Manual Diff / Slide Review SLIDE REVIEW
[2023-03-26 14:36] LABS: RBC Morphology Normal Morphology
[2023-03-26 15:26] LABS: Alanine Aminotransferase 20 IU/L (<35); Albumin 3.8 g/dL (3.5-5.0); Albumin Globulin Ratio 1.5 (1.0-2.8); Alkaline Phosphatase 73 U/L (38-126); Aspartate Aminotransferase 22 IU/L (14-36); BUN Creatinine Ratio 12.9 (6-22); Bilirubin Total 0.5 mg/dL (0.2-1.3); Blood Urea Nitrogen 8 mg/dL (7-17); Carbon Dioxide 25 mmol/L (22-32); Chloride 103 mmol/L (98-107); Estimated Glomerular Filt Rate > 60 mL/min (>60); Globulin 2.6 g/dL (1.7-4.1); Glucose 90 mg/dL (70-100); HEMOLYSIS < 15 (0-50); Lipase 134 U/L (23-300); Potassium 4.3 mmol/L (3.4-5.1); Sodium 132 mmol/L (137-145); Total Protein 6.4 g/dL (6.3-8.2)
--- NOTE | 2023-03-26 15:57 | DI.US.S_ITS ---
PROCEDURE: US PELVIC COMPLETE INDICATIONS: OVARIAN CYSTS TECHNIQUE: Real-time scanning was performed of the pelvic organs, with image documentation. Additional endovaginal scanning was necessary due to incomplete visualization of the adnexal and endometrial structures by transabdominal scanning. COMPARISON: [facility], US, US PELVIC + TRANSVAG + DOPPLER LIMITED, 10/19/2022, 12:08. [facility], US, US PELVIC COMPLETE, 01/17/2023, 16:49. FINDINGS: Uterus: Uterus is anteverted and normal in size at 5.6 x 2.9 x 4 cm. The myometrium is homogeneous. The endometrium measures 11 mm combined thickness. Ovaries: The right ovary measures 2.8 x 2.4 x 2.6 cm, with a calculated ovarian volume of 9 cc. The left ovary measures 5.8 x 5.2 x 4.9 cm, with a calculated ovarian volume of 77 cc. There is a complex left ovarian cystic mass measures 4.8 x 4.6 x 4.5 cm. There is a likely fluid - fluid level seen within this mass. Normal appearing arterial waveforms are confirmed to each ovary. No adnexal masses are seen. Other: A mild amount of fluid can be seen within the pelvic cul-de-sac. IMPRESSION: Complex left ovarian cystic mass seen that measures 4.8 cm. If it would be clinically appropriate, a followup pelvic ultrasound could be considered in 6 weeks to assure resolution/ improvement. We strive to produce accurate, complete, and clear reports of imaging services. To assist us in improving patient care, this report was composed using standard report templates and voice recognition software. Therefore, it may contain abnormal punctuation, insertions and/or omissions. Occasional wrong-word or sound-alike substitutions may occur. Though we review the report and make efforts to correct it, we do recommend that the report be read carefully in proper context to recognize any text inaccuracies. Dictated by: Alex Davis M.D. on 03/26/2023 at 15:38 Approved by: Alex Davis M.D. on 03/26/2023 at 15:40
[2023-03-26] MEDS: HYDROMORPHONE 0.5 MG INJ IV (16:04)
--- NOTE | 2023-03-26 16:58 | PC.NURSE ---
Patient expressed that they are having increased nausea again. This RN notified provider who gave verbal order to give patient an additional dose of zofran.
--- NOTE | 2023-03-26 18:45 | ED.ABDPAIN ---
HPI - Abdominal Pain General Chief Complaint: Abdominal Pain Stated Complaint: T-3 seen at [facility] cyst, V since this morning Time Seen by Provider: 03/26/23 18:07 History of Present Illness HPI narrative: 22-year-old female former smoker with history of known ovarian cyst, PCOS and menorrhagia presents to the emergency department for evaluation of increasing pelvic pain and nausea and vomiting. She had been seen and evaluated at the emergency department in [place] recently and they reportedly consulted with Dr. Grover who instructed them to tell the patient to present for worsening pain or vomiting. She states that her pain is now 9/10, worse when she moves and improves with rest, she denies any radiation of her pain. She is had multiple episodes of nausea or vomiting and last had solids this morning at about 10:00 a.m. but vomited them up. She is had multiple episodes of nausea and vomiting in his now dizzy and lightheaded. She denies fever or chills. She denies vaginal bleeding or discharge. Her last menstrual cycle was the end of last month. Related Data Previous Rx's Medication Instructions Recorded ondansetron 4 mg disintegrating 4 mg PO TID-QID PRN nausea and 03/26/23 tablet vomiting #10 tabs oxycodone 5 mg tablet 5 mg PO Q6H PRN pain #14 tabs 03/26/23 Allergies Allergy/AdvReac Type Severity Reaction Status Date / Time No Known Drug Allergies Allergy Verified 01/17/23 16:00 Review of Systems Review of Systems Narrative: GENERAL: Denies chills, fatigue, malaise, fever, sweats. HEENT: Denies sinus pain, ear pain, sore throat, difficulty swallowing, dizziness. RESPIRATORY: Denies dyspnea, cough, wheezing, hemoptysis, sputum. CARDIOVASCULAR: Denies chest pain, palpitations, orthopnea, edema, GASTROINTESTINAL: See HPI : See HPI MUSCULOSKELETAL: denies weakness, joint pain, or bony pain SKIN: Denies rash, skin lesions, or other NEUROLOGIC: Denies weakness, headache, numbness, change in speech, confusion, seizures, incoordination. PSYCHIATRIC: No concerning psychosocial issues. 12 point review of systems is negative except for those stated above Patient History Medical History Anxiety and depression GI bleeding Headache History of panic attacks Kidney stone Ovarian cyst Syncope and collapse Surgical History No pertinent past surgical history Social History household members: significant other Smoking Status: Former smoker alcohol intake: current Smoking Status: Former smoker tobacco type: vaping alcohol intake frequency: holidays/special occasions only Substance Use Type: marijuana Exam Narrative Exam Narrative: GENERAL: 22[] year old patient appears stated age. Well-developed patient, in moderate distress. HEAD: Atraumatic. Normocephalic. EYES: Pupils equal round and reactive. Extraocular motions intact. No scleral icterus. No injection or drainage. ENT: Nose without bleeding, purulent drainage. Throat without erythema, tonsillar hypertrophy or exudate. Airway patent. NECK: Trachea midline. Non tender CARDIOVASCULAR: Regular rate and rhythm without murmurs, gallops, or rubs. RESPIRATORY: Clear to auscultation. Breath sounds equal bilaterally. No wheezes, rales, or rhonchi. GASTROINTESTINAL: Abdomen soft, tender to left lower quadrant with localized guarding nondistended. Bowel sounds present in all 4 quadrants EXTREMITIES: No edema or joint tenderness. BACK: Nontender without deformity or crepitance. No flank tenderness. NEURO: AOx3. SKIN: No rash or erythema of visible areas Initial Vital Signs Initial Vital Signs: Vital Signs Temperature 97.4 F L 03/26/23 13:36 Pulse Rate 90 03/26/23 13:36 Respiratory Rate 18 03/26/23 13:36 Blood Pressure 130/74 03/26/23 13:36 Pulse Oximetry 100 03/26/23 13:36 Oxygen Delivery Method Room Air 03/26/23 13:36 Course Orders Ordered: Discontinued Medications Hydromorphone HCl (Hydromorphone 0.5 Mg Inj) 0.5 mg IV NOW ONE Stop: 03/26/23 16:01 Last Admin: 03/26/23 16:04 Dose: 0.5 mg Documented By: OW Hydromorphone HCl (Hydromorphone 1 Mg Inj) 1 mg IV NOW ONE Stop: 03/26/23 18:56 Last Admin: 03/26/23 19:03 Dose: 1 mg Documented By: RB Sodium Chloride (Normal Saline 0.9%) 1,000 mls @ 1,000 mls/hr IV BOLUS ONE Stop: 03/26/23 15:28 Last Infusion: 03/26/23 16:02 Dose: 0 mls/hr Documented By: Admin: 03/26/23 14:32 Dose: 1,000 mls/hr Documented By: DANA Ondansetron HCl (Ondansetron 4 Mg Odt) 4 mg PO NOW PRN PRN Reason: Nausea And Vomiting Ondansetron HCl (Ondansetron 4 Mg/2 Ml Inj) 4 mg IV NOW PRN PRN Reason: Nausea And Vomiting Last Admin: 03/26/23 14:29 Dose: 4 mg Documented By: DANA Ondansetron HCl (Ondansetron 4 Mg/2 Ml Inj) 4 mg IV NOW ONE Stop: 03/26/23 17:02 Last Admin: 03/26/23 17:05 Dose: 4 mg Documented By: RB Consultations Consultation #1: Dr. Pagan (OB). We have discussed patient's clinical course including today's vitals, labs and imaging. Given no evidence of torsion or rupture there is no indication for surgical intervention at this time. She recommends pain control, antiemetics and return precautions to include worsening pain, persistent vomiting, fever, chills, near-syncope or other bothersome symptoms. Vital Signs Vital signs: Vital Signs - 8 hr 03/26/23 18:30 03/26/23 18:30 03/26/23 18:45 Pulse Rate 88 81 Blood Pressure 108/60 Pulse Oximetry 99 98 Oxygen Delivery Method 03/26/23 19:00 03/26/23 19:00 Pulse Rate 89 Blood Pressure 151/79 H Pulse Oximetry 99 Oxygen Delivery Method Room Air MDM - Abdominal Pain Lab Data 03/26/23 14:06 03/26/23 15:10 Labs: Lab Results 03/26/23 03/26/23 Range/Units 14:06 15:10 WBC 9.5 (4.5-11.0) X10^3/uL RBC 4.79 (4.0-5.2) X10^6/uL Hgb 13.9 (12.0-16.0) g/dL Hct 39.6 (36-46) % MCV 82.6 (80-100) fL MCH 29.0 (26-34) PG MCHC 35.1 (30-36) % RDW 14.0 (11.6-14.8) % Plt Count 187 (150-400) X10^3/uL Neut % (Auto) 73.7 (50-75) % Lymph % (Auto) 17.1 L (25-40) % [place] % (Auto) 7.8 (3-14) % Eos % (Auto) 1.0 L (2-4) % Baso % (Auto) 0.4 (0-2) % Neut # (Auto) 7000 (4315-5564) /uL Lymph # (Auto) 1600 (2181-7728) /uL [place] # (Auto) 700 (0-900) /uL Eos # (Auto) 100 (0-450) /uL Baso # (Auto) 0 (0-100) /uL RBC Morphology Normal morphology Sodium 132 L (137-145) mmol/L Potassium 4.3 (3.4-5.1) mmol/L Chloride 103 (98-107) mmol/L Carbon Dioxide 25 (22-32) mmol/L BUN 8 (7-17) mg/dL Creatinine 0.62 (0.52-1.04) mg/dL Estimated GFR > 60 (>60) mL/min BUN/Creatinine Ratio 12.9 (6-22) Glucose 90 (70-100) mg/dL Calcium 8.0 L (8.4-10.2) mg/dL Total Bilirubin 0.5 (0.2-1.3) mg/dL AST 22 (14-36) IU/L ALT 20 (<35) IU/L Alkaline Phosphatase 73 (38-126) U/L Total Protein 6.4 (6.3-8.2) g/dL Albumin 3.8 (3.5-5.0) g/dL Globulin 2.6 (1.7-4.1) g/dL Albumin/Globulin Ratio 1.5 (1.0-2.8) Lipase 134 (23-300) U/L Point of care testing: Point of Care Testing Test Results Negative Urine Dip Bedside Urine Glucose Negative Bedside Urine Bilirubin - Negative Bedside Urine Ketone - Negative Urine Specific Halma 1.010 Bedside Urine Occult Blood - Negative Bedside Urine pH 8.5 Bedside Urine Protein - Negative Bedside Urine Urobilinogen - Negative Bedside Urine Nitrite - Negative Bedside Urine Leukocytes - Negative Esterase MDM Narrative Medical decision making narrative: [22] year old patient presents with left lower quadrant pain in the setting of a known large complex ovarian cyst Multiple etiologies for patient's symptoms considered including, but not limited to: [Torsion versus rupture versus kidney stone versus other] Prior Charts reviewed in our EMR Primary Historian: patient Labs reviewed and interpreted by myself: No leukocytosis or left shift, no signs of anemia. Urine absence of signs of infection, negative. Imaging reviewed: Large complex ovarian cyst at 4.8 cm, no evidence of torsion or rupture Consultations: Discussed with OB, see details above Patient's symptoms improved over duration of stay with above-stated therapies. Pain is well controlled, she is tolerating orals, no signs of sepsis Findings and discharge diagnosis discussed with patient/family followed by verbalization of understanding Return precautions discussed with patient/family whom verbalize understanding of diagnosis and plan Discharge Plan Departure Patient Disposition: Home Clinical Impression: Ovarian cyst Instructions: DI for Ovarian Cyst Activity Restrictions/Additional Instructions: *You have been diagnosed with [left ovarian cyst. As we discussed your history and physical exam as well as labs, vital signs and ultrasound are reassuring and there is no evidence of any diagnosis that would suggest you need an emergent surgical intervention.] *What to do: *Please continue to take your regular medications as directed. [ x] New medication prescriptions sent to your pharmacy: [ [facility] in [place]] [ ] New medication written as a paper prescription [ ] No new medications given *Please follow up with Dr. Grover as soon as possible, call tomorrow morning for an appointment. Let them know you were seen in the Emergency Department twice and that we ask that you be seen in follow up. We will electronically transmit a record of today's note *Return to Emergency Department if you should have any new, worsening or concerning symptoms, such as [fever greater than 101 F, shaking chills, worsening pain, persistent vomiting or other bothersome symptoms] You have been prescribed a short course of narcotic medications. These are potentially dangerous and addictive medications that should be used carefully. While on these medications you cannot drive or operate heavy machinery. Additionally, you cannot sign legal documents or perform any duties such as this. Many people get constipated on narcotic medications so it would be advisable to discuss stool softeners with the pharmacist when you hand picker your prescription. Please understand that we cannot provide further refills of narcotics or controlled substances through the ED and your pain management will need to be through your Primary Care Provider Prescriptions: New ondansetron 4 mg tablet,disintegrating 4 mg PO TID-QID PRN (Reason: nausea and vomiting) Qty: 10 0RF oxycodone 5 mg tablet 5 mg PO Q6H PRN (Reason: pain) Qty: 14 0RF Referrals: Tamela Grover MD [Primary Care Provider] - Stand Alone Forms: Patient Portal/API
[2023-03-26] MEDS: HYDROMORPHONE 1 MG INJ IV (19:03)
== END 2023-03-26 19:20 | disposition home or self-care (01) ==
PROVIDERS: Emergency Medicine; Emergency Provider Emergency Medicine; Family Provider Obstetrics & Gynecology; PCP Obstetrics & Gynecology
DX: N83.202 Unspecified ovarian cyst, left side (principal)
CPT/HCPCS: 36415; 76856; 80053; 81003; 81025; 83690; 85025; 93005; 96361; 96374; 96375; 96376; 99284; J1170; J2405

== ENCOUNTER → 2023-05-17 12:18 | Outpatient (CLI) | payer BC, SELFPAY ==
--- NOTE | 2023-05-17 12:19 | DI.US.S_ITS ---
PROCEDURE: US PELVIC COMPLETE INDICATIONS: LEFT OVARIAN CYST TECHNIQUE: Real-time scanning was performed of the pelvic organs, with image documentation. Additional endovaginal scanning was necessary due to incomplete visualization of the adnexal and endometrial structures by transabdominal scanning. COMPARISON: [facility], US, US PELVIC COMPLETE, 03/26/2023, 16:17. FINDINGS: Uterus: Uterus is anteverted and normal in size at 7.1 x 3.2 x 3.3 cm. The myometrium is homogeneous. The endometrium measures 8 mm combined thickness. Ovaries: The right ovary measures 3.4 x 2.6 x 2.5 cm, with a calculated ovarian volume of 12 cc. The left ovary measures 4.0 x 2.3 x 2.5 cm, with a calculated ovarian volume of 12 cc. The ovaries have a normal sonographic appearance. Greater than 12 follicles can be seen in each ovary. No adnexal masses are seen. Resolved left ovarian complex cystic lesion. Other: No pathologic free abdominal or pelvic fluid. IMPRESSION: Resolved complex left ovarian cystic lesion, presumably a resolved hemorrhagic cyst. Greater than 12 follicles per ovary, which can be seen in the clinical setting of PCOS. We strive to produce accurate, complete, and clear reports of imaging services. To assist us in improving patient care, this report was composed using standard report templates and voice recognition software. Therefore, it may contain abnormal punctuation, insertions and/or omissions. Occasional wrong-word or sound-alike substitutions may occur. Though we review the report and make efforts to correct it, we do recommend that the report be read carefully in proper context to recognize any text inaccuracies. Dictated by: Monty Busby M.D. on 05/17/2023 at 15:03 Approved by: Monty Busby M.D. on 05/17/2023 at 15:05
== END ==
PROVIDERS: Family Provider Obstetrics & Gynecology; PCP Obstetrics & Gynecology; Referring Provider Obstetrics & Gynecology; Visit Provider Obstetrics & Gynecology
DX: E28.2 Polycystic ovarian syndrome (principal); R10.2 Pelvic and perineal pain
CPT/HCPCS: 76830; 76856; 93975